=== PATIENT | female | born 1975 | race Two or more races ===

== ENCOUNTER 2025-10-27 19:58 | Emergency (ER) | payer SELFPAY ==
[~2025-10-27] VITALS: Ht 152.4 cm; Wt 54.0 kg
[2025-10-27 20:00] VITALS: BP 154/80; PULSE 76; RESP 20; TEMP 97.7; O2SAT 96
[2025-10-27 20:48] LABS: PLATELET COUNT (AUTO) 371 K/uL (150-450); RED BLOOD CELL COUNT(AUTO) 4.23 MIL/uL (4.00-5.20); RED CELL DISTRIBUTION WIDTH 12.7 % (11.5-14.5); WHITE BLOOD COUNT (AUTO) 7.3 K/uL (4.5-11.0)
[2025-10-27 20:57] LABS: CALCIUM, TOTAL 8.6 mg/dL (8.8-10.5); CREATININE 0.55 mg/dL (0.60-1.30); GLOMERULAR FILTR. RATE CALC > 60 mL/min (>60); GLUCOSE,RANDOM 108 mg/dL (70-110); SODIUM SERUM 142 mmol/L (136-145); UREA NITROGEN, BLOOD 9 mg/dL (7-18)
== END 2025-10-27 22:09 ==
LOC: EMS 20:03
DX: F10.229 Alcohol dependence with intoxication, unspecified (principal); F15.90 Other stimulant use, unspecified, uncomplicated; F41.9 Anxiety disorder, unspecified; Z98.890 Other specified postprocedural states; Z65.3 Problems related to other legal circumstances; Y90.8 Blood alcohol level of 240 mg/100 ml or more
CPT/HCPCS: 99283; 80048; 84703; 85025; 36415; G0480